=== PATIENT | male | born 1980 | race Caucasian/White ===

== ENCOUNTER 2020-01-11 16:03 | Emergency (ER) | payer SELFPAY ==
[~2020-01-11] VITALS: Ht 175.3 cm; Wt 70.5 kg
[2020-01-11] MEDS ORDERED: GABA-1216 PO (16:11)
[2020-01-11] MEDS ORDERED: OXYC10TA59 PO (16:11)
[2020-01-11] MEDS ORDERED: HYDR2 PO (16:11)
[2020-01-11] MEDS ORDERED: HYDROCODONE/ACETAMINOPHEN 5-325 MG TABLET PO ONE (18:00)
[2020-01-11] MEDS ORDERED: KETOROLAC TROMETHAMINE 30 MG/ML VIAL IM ONE (18:00)
[2020-01-11 18:10] VITALS: BP 144/81
== END 2020-01-11 18:30 | disposition home or self-care (01) ==
LOC: EMS 16:06
DX: M62.830 Muscle spasm of back (principal); M54.2 Cervicalgia; F17.210 Nicotine dependence, cigarettes, uncomplicated; F19.90 Other psychoactive substance use, unspecified, uncomplicated
CPT/HCPCS: 96372; 99283; J1885